=== PATIENT | male | born 1995 | race Caucasian/White ===

== ENCOUNTER 2019-11-01 23:34 | Emergency (ER) | payer SELFPAY ==
[~2019-11-01] VITALS: Ht 182.9 cm; Wt 137.0 kg
[2019-11-02] MEDS ORDERED: DIAZEPAM 2 MG TABLET PO ONE (00:45)
[2019-11-02 02:00] VITALS: BP 133/77
== END 2019-11-02 02:20 | disposition home or self-care (01) ==
LOC: ER 23:34
DX: F41.9 Anxiety disorder, unspecified (principal)
CPT/HCPCS: 93005; 99283; Z7610